=== PATIENT | male | born 1955 | race Caucasian/White ===

== ENCOUNTER 2021-03-27 18:43 | Emergency (ER) | payer BC, OTHER ==
[2021-03-27] MEDS ORDERED: FLUORESCEIN SODIUM 1 MG/WRAP ONE (19:32)
[2021-03-27] MEDS ORDERED: TETRACAINE HCL 0.5% 4ML OPTH ONE (19:32)
[2021-03-27] MEDS ORDERED: MOXIFLOXACIN HCL 0.5% 3ML OPTH OPTH ONE (20:18)
--- NOTE | 2021-03-27 20:28 | ER ---
Nurse's Notes [facility] Name: Moses Desai Age: 65 yrs Sex: Male : 1955 Arrival Date: 03/27/2021 Time: 18:45 Bed 20 Private MD: Diagnosis: Conjunctivitis, Bilateral;Corneal Abrasion, Bilateral Presentation: 03/27 18:53 Chief complaint: Severe bilateral eye pain, redness, burning, and light sensitivity hb after surfing in the ocean this morning. Reports distant bacterial infection after surfing, says this feels similar. Coronavirus screen: At this time, the client does not indicate any symptoms associated with coronavirus-19. Ebola Screen: No symptoms or risks identified at this time. Risk Assessment: Do you want to hurt yourself or someone else? Patient reports no desire to harm self or others. Onset of symptoms was March 27, 2021. 18:53 Method Of Arrival: Ambulatory hb 18:53 Acuity: JOVANNY 4 hb 18:59 Initial Sepsis Screen: Does the patient meet any 2 criteria? No. Patient's initial hb sepsis screen is negative. Does the patient have a suspected source of infection? No. Patient's initial sepsis screen is negative. Historical: - Allergies: 18:56 Keflex; hb - Home Meds: 18:56 Pravachol 40 mg Oral tab 1 tab once daily [Active]; hb - PSHx: 18:56 hemorrhoidectomy; hb - Immunization history:: Adult Immunizations up to date. - Social history:: Smoking status: Patient denies any tobacco usage or history of. Screenin:01 Abuse screen: Denies threats or abuse. Denies injuries from another. Nutritional zb screening: No deficits noted. Tuberculosis screening: No symptoms or risk factors identified. Fall Risk None identified. Assessment: 19:02 General: Appears uncomfortable, Behavior is anxious. Pain: Complains of pain in right zb eye and left eye Pain currently is 10 out of 10 on a pain scale. Quality of pain is described as burning, Pain began 4 hours ago. Is continuous, Noted to be grimacing. Neuro: Level of Consciousness is awake, alert, obeys commands, Oriented to person, place, time, situation. Cardiovascular: Patient's skin is warm and dry. Respiratory: Airway is patent. EENT: Sclera/Cornea are reddened in outer aspect of conjuctiva of right eye, iris of right eye, inner aspect of conjuctiva of right eye, outer aspect of conjuctiva of left eye, iris of left eye and inner aspect of conjunctiva of left eye. Derm: Skin is intact, is healthy with good turgor. Musculoskeletal: Range of motion: intact in all extremities. 19:16 Reassessment: ECP at bedside discussing care with patient. zb 20:00 Reassessment: Patient appears in no apparent distress at this time. Patient and/or zb family updated on plan of care and expected duration. Pain level reassessed. Patient is alert, oriented x 3, equal unlabored respirations, skin warm/dry/pink. discussed eye care and follow up. patient up at [place] w/ family at bedside. Vital Signs: 18:53 BP 162 / 91; Pulse 77; Resp 16; Temp 97.5; Pulse Ox 98% on R/A; Pain 10/10; hb 20:46 BP 145 / 90; Pulse 85; Resp 16; Pulse Ox 100% on R/A; zb Visual Acuity: 20:17 Left Eye Visual acuity 20/30, Pupil size 3 mm, Reactive To Accomodation; Right Eye zb Visual acuity 20/40, Pupil size 3 mm, Reactive To Accomodation; Both Eyes Visual acuity 20/30; Without Lenses; ED Course: 18:45 Patient arrived in ED. mr 18:55 Triage completed. hb 18:56 Arm band placed on. hb 19:01 Pura Timmons RN is Primary Nurse. zb 19:01 Tiburcio Medina MD is Attending Physician. mh7 19:01 Patient has correct armband on for positive identification. Placed in gown. Bed in low zb position. Call light in reach. Pulse ox on. NIBP on. 20:27 Nini Arzate MD is Referral Physician. mh7 20:46 No provider procedures requiring assistance completed. Patient did not have IV access zb during this emergency room visit. Administered Medications: 19:15 CANCELLED (Duplicate Order): Tetracaine Drops 0.5 % 1 drops Ophthalmic once zb 19:15 Drug: Tetracaine Drops 0.5 % 1 drops {Note: administered by ECP .} Route: Ophthalmic; zb Site: both eyes; 20:46 Follow up: Response: No adverse reaction; Marked relief of symptoms zb 20:16 Drug: Vigamox (moxifloxacin) 0.5 % 1 drops Route: Ophthalmic; Site: both eyes; zb 20:45 Follow up: Response: No adverse reaction; Marked relief of symptoms zb 20:16 Drug: [place] (HYDROcodone-acetaminophen) 5 mg-325 mg 1 tabs {Note: Rass +0.} Route: PO; zb 20:43 Follow up: Response: No adverse reaction; Pain is decreased; RASS: Alert and Calm (0) zb Outcome: 20:[address] . [facility] 20:46 Discharged to home ambulatory, with family. zb 20:46 Condition: stable 20:46 Discharge instructions given to patient, family, Instructed on discharge instructions, follow up and referral plans. medication usage, Demonstrated understanding of instructions, follow-up care, medications, Prescriptions given X 2. 20:47 Patient left the ED. zb Signatures: Abbey Dowling Heather RN RN Tiburcio Medina MD MD Pura Shaffer RN RN zb Corrections: (The following items were deleted from the chart) 18:59 18:53 Chief complaint: Severe bilateral eye pain, redness, burning, and light hb sensitivity after surfing in the ocean this morning. Reports distant bacterial infection after surfing in ocean, says this feels similar. hb 23:37 20:00 Reassessment: Patient appears in no apparent distress at this time. Patient zb and/or family updated on plan of care and expected duration. Pain level reassessed. Patient is alert, oriented x 3, equal unlabored respirations, skin warm/dry/pink. discussed eye care and follow up. patient up at [place] w/ family at bedside. zb 23:37 21:00 Reassessment: Patient appears in no apparent distress at this time. Patient zb and/or family updated on plan of care and expected duration. Pain level reassessed. Patient is alert, oriented x 3, equal unlabored respirations, skin warm/dry/pink. zb
--- NOTE | 2021-03-27 20:28 | EDPHYS ---
Physician Documentation [facility] Name: Moses Desai Age: 65 yrs Sex: Male : 1955 Arrival Date: 03/27/2021 Time: 18:45 Bed 20 Private MD: ED Physician Tiburcio Medina HPI: 03/27 19:42 This 65 yrs old Male presents to ER via Ambulatory with complaints of Eye mh7 Pain. 19:42 The patient is experiencing burning, pain, redness. Onset: The symptoms/episode mh7 began/occurred today. Duration: the symptoms are continuous. Aggravated by light, Alleviated by nothing. Associated signs and symptoms: Pertinent negatives: chills, dizziness, ear ache, fever, headache, runny nose. Patient does not utilize any form of vision correction. Severity of symptoms: At their worst the symptoms were moderate today, in the emergency department the symptoms are unchanged. States that he was surfing and got water in his eyes then later started having burning sensation, pain and redness of both eyes.. Historical: - Allergies: 18:56 Keflex; hb - Home Meds: 18:56 Pravachol 40 mg Oral tab 1 tab once daily [Active]; hb - PSHx: 18:56 hemorrhoidectomy; hb - Immunization history:: Adult Immunizations up to date. - Social history:: Smoking status: Patient denies any tobacco usage or history of. ROS: 19:42 Constitutional: Negative for fever, chills, and weight loss, ENT: Negative for injury, mh7 pain, and discharge, Neck: Negative for injury, pain, and swelling, Cardiovascular: Negative for chest pain, palpitations, and edema, Respiratory: Negative for shortness of breath, cough, wheezing, and pleuritic chest pain, Abdomen/GI: Negative for abdominal pain, nausea, vomiting, diarrhea, and constipation, Back: Negative for injury and pain, : Negative for injury, bleeding, discharge, and swelling, MS/Extremity: Negative for injury and deformity, Skin: Negative for injury, rash, and discoloration, Neuro: Negative for headache, weakness, numbness, tingling, and seizure, Psych: Negative for depression, anxiety, suicide ideation, homicidal ideation, and hallucinations, Allergy/Immunology: Negative for hives, rash, and allergies, Endocrine: Negative for neck swelling, polydipsia, polyuria, polyphagia, and marked weight changes, Hematologic/Lymphatic: Negative for swollen nodes, abnormal bleeding, and unusual bruising. Exam: 19:42 Constitutional: This is a well developed, well nourished patient who is awake, alert, mh7 and in no acute distress. Head/Face: Normocephalic, atraumatic. 19:42 Neck: Trachea midline, no thyromegaly or masses palpated, and no cervical lymphadenopathy. Supple, full range of motion without nuchal rigidity, or vertebral point tenderness. No Meningismus. Chest/axilla: Normal chest wall appearance and motion. Nontender with no deformity. No lesions are appreciated. Cardiovascular: Regular rate and rhythm with a normal S1 and S2. No gallops, murmurs, or rubs. Normal PMI, no JVD. No pulse deficits. Respiratory: Lungs have equal breath sounds bilaterally, clear to auscultation and percussion. No rales, rhonchi or wheezes noted. No increased work of breathing, no retractions or nasal flaring. Abdomen/GI: Soft, non-tender, with normal bowel sounds. No distension or tympany. No guarding or rebound. No evidence of tenderness throughout. Back: No spinal tenderness. No costovertebral tenderness. Full range of motion. Skin: Warm, dry with normal turgor. Normal color with no rashes, no lesions, and no evidence of cellulitis. MS/ Extremity: Pulses equal, no cyanosis. Neurovascular intact. Full, normal range of motion. Neuro: Awake and alert, GCS 15, oriented to person, place, time, and situation. Cranial nerves II-XII grossly intact. Motor strength 5/5 in all extremities. Sensory grossly intact. Cerebellar exam normal. Normal gait. Psych: Awake, alert, with orientation to person, place and time. Behavior, mood, and affect are within normal limits. 19:42 Eyes: Periorbital structures: appear normal, Pupils: equal, round, and reactive to light and accomodation, Extraocular movements: intact throughout, Conjunctiva: injected, bilaterally, Corneas: abrasion, that is moderate sized, on the left, on the right, at 6 o'clock, foreign body, is not appreciated, a fluorescein strip employed to appreciate the findings, Sclera: no appreciated abnormality, Anterior chamber: no slit lamp available. Lids and lashes: appear normal, funduscopic exam reveals no obvious abnormalities, Visual zendejas: are intact, Nystagmus: is not appreciated, Intraocular pressure: right eye = 16mmHg, left eye = 16mmHg. 20:31 Visual Acuity: I have reviewed the nursing documentation. [facility] Vital Signs: 18:53 BP 162 / 91; Pulse 77; Resp 16; Temp 97.5; Pulse Ox 98% on R/A; Pain 10/10; hb 20:46 BP 145 / 90; Pulse 85; Resp 16; Pulse Ox 100% on R/A; zb Visual Acuity: 20:17 Left Eye Visual acuity 20/30, Pupil size 3 mm, Reactive To Accomodation; Right Eye zb Visual acuity 20/40, Pupil size 3 mm, Reactive To Accomodation; Both Eyes Visual acuity 20/30; Without Lenses; MDM: 20:26 Differential diagnosis: Corneal abrasion of both eyes. Corneal ulcer of both eyes. 7 Foreign body in both eyes. Acute iritis of both eyes. Chemical conjunctivitis in both eyes. Infectious conjunctivitis in both eyes. Data reviewed: vital signs, nurses notes. Counseling: I had a detailed discussion with the patient and/or guardian regarding: the historical points, exam findings, and any diagnostic results supporting the discharge/admit diagnosis, the need for outpatient follow up, an opthalmologist, to return to the emergency department if symptoms worsen or persist or if there are any questions or concerns that arise at home. Response to treatment: the patient's symptoms have markedly improved after treatment. 20:28 Patient medically screened. [facility] 03/27 19:15 Order name: Visual Acuity; Complete Time: 20:39 zb 03/27 19:15 Order name: Eye Tray; Complete Time: 19:15 z 03/27 19:15 Order name: Fluoresene Opth strip; Complete Time: 19:16 zb Administered Medications: 19:15 CANCELLED (Duplicate Order): Tetracaine Drops 0.5 % 1 drops Ophthalmic once zb 19:15 Drug: Tetracaine Drops 0.5 % 1 drops {Note: administered by ECP .} Route: Ophthalmic; zb Site: both eyes; 20:46 Follow up: Response: No adverse reaction; Marked relief of symptoms zb 20:16 Drug: Vigamox (moxifloxacin) 0.5 % 1 drops Route: Ophthalmic; Site: both eyes; zb 20:45 Follow up: Response: No adverse reaction; Marked relief of symptoms zb 20:16 Drug: [place] (HYDROcodone-acetaminophen) 5 mg-325 mg 1 tabs {Note: Rass +0.} Route: PO; zb 20:43 Follow up: Response: No adverse reaction; Pain is decreased; RASS: Alert and Calm (0) zb Disposition: 03/27/21 20:28 Discharged to Home. Impression: Conjunctivitis, Bilateral, Corneal Abrasion, Bilateral. - Condition is Stable. - Discharge Instructions: Corneal Abrasion, [id number], Bacterial Conjunctivitis, [id number]. - Prescriptions for Tylenol- Codeine #3 300-30 mg Oral Tablet - take 2 tablets by ORAL route every 6 hours As needed; 20 tablet. Vigamox 0.5 % Ophthalmic Drops - instill 1 drop by OPHTHALMIC route every 8 hours for 7 days; 5 milliliter. - Medication Reconciliation Form, Thank You Letter, Antibiotic Education, Prescription Opioid Use form. - Follow up: Private Physician; When: 1 - 2 days; Reason: Worsening of condition, Recheck today's complaints, Continuance of care, Re-evaluation by your physician. Follow up: Nini Arzate MD; When: 1 - 2 days; Reason: Worsening of condition, Recheck today's complaints. - Problem is new. - Symptoms have improved. Signatures: Geena Richter RN RN Tiburcio Medina MD MD [facility] Pura Timmons RN RN zb Corrections: (The following items were deleted from the chart) 19:15 19:14 Tetracaine Drops 0.5 % 1 drops Ophthalmic once ordered. zb zb 19:15 19:14 Fluorescein opth strip ordered. zb zb 20:47 20:28 03/27/2021 20:28 Discharged to Home. Impression: Conjunctivitis, Bilateral; zb Corneal Abrasion, Bilateral. Condition is Stable. Forms are Medication Reconciliation Form, Thank You Letter, Antibiotic Education, Prescription Opioid Use. Follow up: Private Physician; When: 1 - 2 days; Reason: Worsening of condition, Recheck today's complaints, Continuance of care, Re-evaluation by your physician. Follow up: Nini Arzate; When: 1 - 2 days; Reason: Worsening of condition, Recheck today's complaints. Problem is new. Symptoms have improved. mh7
[2021-03-27] MEDS ORDERED: HYDROCODONE/APAP 5/325 MG TAB ONE (20:30)
[2021-03-27 21:08] VITALS: TEMP 97.5
[2021-03-27 21:10] VITALS: BP 145/90; O2SAT 100
== END 2021-03-27 20:47 | disposition home or self-care (01) ==
LOC: ER 18:43
DX: H10.9 Unspecified conjunctivitis (principal); S05.02XA Injury of conjunctiva and corneal abrasion without foreign body, left eye, initial encounter; S05.01XA Injury of conjunctiva and corneal abrasion without foreign body, right eye, initial encounter; Z88.1 Allergy status to other antibiotic agents
CPT/HCPCS: 99283